=== PATIENT | female | born 1960 | race Caucasian/White ===

== ENCOUNTER → 2016-10-13 | Day surgery (SDC) | payer BC ==
[~2016-10-13] MED LIST: ADVA250A INH; ALPR1TAB3 PO; BLACK COHASH; DETR2TAB PO; IBUP800T23 PO; IOHEXOL 180 MG/ML 20 ML VIAL (for RAD DIAG) EPIDURAL ONE; LIDOCAINE HCL 1% 30 ML VIAL NERV BLOCK ONE; MEPERIDINE HCL 25 MG/ML VIAL IV ONE; POTASSIUM; PREG25 PO; PROPOFOL 200 MG/20 ML AMP IV ONE; ROBA750T PO; TOLT1TAB16 PO; TRIAMCINOLONE ACETONIDE 40 MG/ML VIAL NERV BLOCK ONE; VENTAER INH; VITA100064 PO; ZOLP5TAB3 PO; [UNRECOGNIZED DRUG - REMARK]
--- NOTE | 2016-10-17 13:06 | M6 ---
cc: TEMI MENA M.D. DATE: 10/13/2016 DATE OF : 1960 PROCEDURE Fluoroscopically guided right L3-4 and right L4-5 transforaminal epidural steroid injection. PROCEDURE NOTE History and physical was completed and signed. Consent was signed. Procedure site was marked. Medications were listed and reconciled. Pain score was recorded. Allergies were noted. Timeout was taken. Fluoroscopy time was recorded where applicable. Sedation was administered or directed by Dr. Mena. The patient was given oxygen. The patient was monitored by a registered nurse. Total procedure time was greater than 15 minutes. An IV was started, blood pressure cuff, pulse oximeter and EKG were applied. The patient was placed in the prone position on a Chan table, sedated with small amounts of Versed and propofol titrated to effect. Vital signs were monitored and remained stable throughout the procedure. The patient remained responsive throughout the procedure. The lumbar area was scrubbed with antimicrobial solution, prepped with 10% Betadine solution, and draped with sterile drapes. Fluoroscopy was used in both the AP and lateral projections to clearly visualize the right L3-4 and L4-5 neural foramen. Then separate sterile 22-gauge, 3-1/2 inch Chiba needles were advanced under fluoroscopic guidance into the dorsal-most aspect of each foramen. There was negative aspiration for blood or CSF. There were no reported paresthesias by the patient. There was no washout of 2 mL of Omnipaque. Then after waiting approximately 60 seconds, the patient was slowly given 3 mL of 1% Xylocaine, 3 mL of Omnipaque and 40 mg of Kenalog at each location. W. MD VASU RoblesM/ESPERANZA /10:14 AM /1:02 PM
== END | disposition home or self-care (01) ==
LOC: PHSDC 08:59
PROVIDERS: ATTEND Pain Medicine Interventional Pain Medicine
DX: M54.5 Low back pain (principal); M79.604 Pain in right leg
CPT/HCPCS: 64483; 64484; 99152; J2175; J3301; Q9965

== ENCOUNTER → 2017-05-23 | Day surgery (SDC) | payer BC ==
[~2017-05-23] MED LIST changes: +BLAC540C PO; -BLACK COHASH; +CONJ1TAB PO; -DETR2TAB PO; +DULO1CAP3 PO; +FEXO60TA36 PO; +IBUP1TAB7 PO; -IBUP800T23 PO; -IOHEXOL 180 MG/ML 20 ML VIAL (for RAD DIAG) EPIDURAL ONE; +KRIL500C PO; +LORA0.5T PO; +LUTE40CA2 PO; -MEPERIDINE HCL 25 MG/ML VIAL IV ONE; +POTA-255 PO; -POTASSIUM; -PREG25 PO; +PREV15CA20 PO; -ROBA750T PO; +SODIUM CHLORIDE 0.9% 10 ML VIAL ONE; +SOMA250T PO; -[UNRECOGNIZED DRUG - REMARK]; +methylPREDNISolone ACETATE 40 MG/ML VIAL IM ONE
--- NOTE | 2017-05-23 08:44 | M6 ---
cc: TEMI MENA M.D. DATE: 05/23/2017 DATE OF : 1960 PROCEDURE Injection local anesthetic and steroid right hamstring tendon. PROCEDURE NOTE History and physical was completed and signed. Consent was signed. Procedure site was marked. Medications were listed and reconciled. Pain score was recorded. Allergies were noted. Timeout was taken. Fluoroscopy time was recorded where applicable. Sedation was administered or directed by Dr. Mena. The patient was given oxygen. The patient was monitored by a registered nurse. Total procedure time was greater than 15 minutes. An IV was started, blood pressure cuff, pulse oximeter and EKG were applied. The patient was placed in the prone position on a Chan table, sedated with small amounts of propofol titrated to effect. Vital signs were monitored and remained stable throughout the procedure. The right buttocks area was prepped with alcohol and 10% Betadine solution, draped with sterile drapes. Fluoroscopy was used to visualize the right ischial tuberosity. A 5-inch, 22-gauge spinal needle was advanced down to the posterior border of the ischial tuberosity in the anatomical location of the hamstring tendon and the patient was given 10 mL of 0.5% Xylocaine, 40 mg of Depo-Medrol and 20 mg of Kenalog. Following the procedure the patient was taken to the recovery room with stable vital signs, neurologically intact. She will be evaluated immediately and with follow-up to determine if she has a subjective decrease in her usual pain and a corresponding objective increase in her functional capabilities. WMD REGLA Deras/ESPERANZA /8:28 AM /8:31 AM
== END | disposition home or self-care (01) ==
LOC: PHSDC 07:17
PROVIDERS: ATTEND Pain Medicine Interventional Pain Medicine
DX: M79.604 Pain in right leg (principal); M54.5 Low back pain
CPT/HCPCS: 64450; 99152; J1030; J3301; 64640

== ENCOUNTER 2018-01-03 08:59 | Observation (INO) ==
[2018-01-03 09:41] LABS: Baso % (Auto) 0.3 % (0.0-2.0); Eos # (Auto) 0.2 th/mm3 (0.0-0.4); Eos % (Auto) 2.6 % (0.0-4.0); Hematocrit 33.2 % (35.0-46.0); Hemoglobin 11.4 gm/dL (11.6-15.3); Lymph # (Auto) 1.7 th/mm3 (1.0-4.8); Lymph % (Auto) 25.4 % (9.0-44.0); Mean Corpuscular HGB Conc 34.2 % (32.0-36.0); Mean Corpuscular Hemoglobin 29.5 pg (27.0-34.0); Mean Corpuscular Volume 86.2 fL (80.0-100.0); Mean Platelet Volume 7.4 fL (7.0-11.0); Mono # (Auto) 0.5 th/mm3 (0.0-0.9); Mono % (Auto) 6.9 % (0.0-8.0); Neut # (Auto) 4.3 th/mm3 (1.8-7.7); Neut % (Auto) 64.8 % (16.0-70.0); Platelet Count 268 th/mm3 (150-450); Red Blood Count 3.84 mil/mm3 (4.00-5.30); Red Cell Distribution Width 14.1 % (11.6-17.2); White Blood Count 6.7 th/mm3 (4.0-11.0)
[2018-01-03 09:54] LABS: Activated Partial Thrombo Time 25.5 sec (24.3-30.1); Prothrombin Time 10.2 sec (9.8-11.6)
--- NOTE | 2018-01-03 10:16 | XR ---
EXAM DATE: 01/03/2018 9:51 AM EDT AGE/SEX: 57 years / Female INDICATIONS: Dizziness, palpitations, slurred speech. CLINICAL DATA: This is the patient's initial encounter. Patient reports that signs and symptoms have been present for 1 day and indicates a pain score of 0/10. MEDICAL/SURGICAL HISTORY: None. None. COMPARISON: [facility]PO, CHEST PA & LAT, 09/21/2014. . FINDINGS: A single AP view of the chest demonstrates the lungs to be symmetrically aerated without evidence of mass, infiltrate or effusion. The cardiomediastinal contours are unremarkable. Osseous structures a re intact. CONCLUSION: No acute cardiopulmonary process. Electronically signed by: Gurpreet Underwood MD 01/03/2018 10:15 AM EDT
--- NOTE | 2018-01-03 10:17 | ED ---
HPI General Chief complaint: Neuro Symptoms/Deficit Stated complaint: Hypertension/Slurred Speech Time Seen by Provider: 01/03/18 09:19 History of Present Illness HPI narrative: 57-year-old female history of anxiety and asthma here for evaluation of acute onset of weakness on both arms and legs that started about 2 hours prior to arrival to the ER. Patient says that she woke up this morning around 6:00, was late to get ready for work and was anxious about that, she took a shower and did not have any symptoms but then when she went to work she started having weakness in both arms and legs, gait imbalance, blurred vision, palpitations, speech difficulty. When I asked about the speech difficulty she says "that is not my normal way of talking", and rewards easily understandable and she denies having difficulties finding words or expressing herself. Patient has mild headache that she rates 4 out of 10 that is frontal. She rates the weakness in both arms and legs as 4 out of 10, slow gait but no fall or head trauma or loss of consciousness. When she started having symptoms at work she asked a friend to drive her to the ER. She says she never had these symptoms in the past. 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 Related Data Home Medications Medication Instructions Recorded Confirmed albuterol sulfate [Ventolin HFA] 2 puff INHALATION Q4H PRN 01/03/18 01/03/18 black cohosh 40 mg PO DAILY 01/03/18 01/03/18 carisoprodol [Soma] 350 mg PO QID 01/03/18 01/03/18 coenzyme Q10 [Co Q-10] 200 mg PO DAILY 01/03/18 01/03/18 fluticasone-salmeterol [Advair HFA] 2 puff INHALATION BID 01/03/18 01/03/18 gabapentin 300 mg PO TID 01/03/18 01/03/18 lansoprazole [Prevacid] 15 mg PO DAILY 01/03/18 01/03/18 loratadine [Claritin] 10 mg PO DAILY 01/03/18 01/03/18 lorazepam 1 mg PO BID 01/03/18 01/03/18 mirabegron [Myrbetriq] 50 mg PO DAILY 01/03/18 01/03/18 zolpidem 10 mg PO HS 01/03/18 01/03/18 Previous Rx's Medication Instructions Recorded prednisone See Label Instructions .ROUTE 01/04/18 .COMPLEX #21 each Allergies Allergy/AdvReac Type Severity Reaction Status Date / Time No Known Allergies Allergy Unknown Uncoded 05/23/17 07:36 Review of Systems Except as stated in HPI: all other systems reviewed are negative [facility] Social History Social History Substance History: No History of Abuse Second Hand Smoke Exposure: No Smoking Status: Former smoker How Often Do You Have a Drink Containing Alcohol: Never Recent Travel in [facility] within the Last 8 Weeks: No Recent Out of Country Travel within the Last 8 Weeks: No Immunization History Tetanus Immunization: Unsure Hx Influenza Vaccine This Season: Yes Exam Narrative Exam Narrative: GENERAL: Alert oriented 3 no acute distress. SKIN: Focused skin assessment warm/dry. HEAD: Atraumatic. Normocephalic. EYES: Pupils equal and round. No scleral icterus. No injection or drainage. ENT: No nasal bleeding or discharge. Mucous membranes pink and moist. NECK: Trachea midline. No JVD. CARDIOVASCULAR: Regular rate and rhythm. No murmur appreciated. RESPIRATORY: No accessory muscle use. Clear to auscultation. Breath sounds equal bilaterally. GASTROINTESTINAL: Abdomen soft, non-tender, nondistended. Hepatic and splenic margins not palpable. MUSCULOSKELETAL: No obvious deformities. No clubbing. No cyanosis. No edema. NEUROLOGICAL: Awake and alert. No obvious cranial nerve deficits. Motor grossly within normal limits. Normal speech. PSYCHIATRIC: Appropriate mood and affect; insight and judgment normal. Course Initial Documented Vital Signs Temperature 98.1 F 01/03/18 09:00 Pulse Rate 105 H 01/03/18 09:00 Respiratory Rate 16 01/03/18 09:00 Blood Pressure 132/71 01/03/18 09:00 Pulse Oximetry 96 01/03/18 09:00 Last Documented Vital Signs Temperature 98.2 F 01/04/18 12:00 Pulse Rate 105 H 01/04/18 12:00 Respiratory Rate 18 01/04/18 12:00 Blood Pressure 134/76 01/04/18 12:00 Pulse Oximetry 105 H 01/04/18 12:00 NIH Stroke Scale NIH Stroke Scale Level of Consciousness: 0-Alert Orientation Questions: 0-Answers both correct Responds to Commands: 0-Both tasks correct Gaze Eye Movement: 0-Horizontal movement WNL Visual Smalls: 0-No visual field defect Facial Movement: 0-Normal Motor Functions Arm LEFT: 0-No drift Motor Functions Arm RIGHT: 0-No drift Motor Functions Leg LEFT: 0-No drift Motor Functions Leg RIGHT: 0-No drift Limb Ataxia: 0-No ataxia Sensory Loss: 0-No sensory loss Best Language: 0-Normal Articulation: 1-Mild dysarthia Extinction or Inattention Sensory: 0-Absent Total: 1 Medical Decision Making MDM Narrative Medical decision making narrative: 57-year-old female here for evaluation of weakness in both arms and legs that started about an hour prior to arrival to the ER. She has history of anxiety and appeared anxious during history taking here in the ER, she takes lorazepam 1 mg 3 times a day, she has been stressed out recently for school. Complete neurological examination is unremarkable for any focal deficits although she has slow gait, she also reports slow speech. Labs are within normal limits and head CT is negative. Patient improved here with 2 mg of Ativan. Reevaluation of the patient, she says the weakness in her arms and legs are gone, blurred vision is improved but the speech is still slow. Patient was complaining of headache that is rated 4 out of 10, she says the headache is gone as well. Differential diagnosis include TIA, CVA, anxiety , complicated migraine. Her symptoms were more generalized and physical examination did not reveal any focal deficits so patient was not a candidate for TPA. Patient will be admitted for 23 hour observation. Lab Data Result diagrams: 01/04/18 04:35 01/04/18 04:50 Lab Results 01/03/18 01/03/18 01/03/18 Range/Units 09:30 09:30 09:30 CBC w Diff Auto diff final WBC 6.7 (4.0-11.0) th/mm3 RBC 3.84 L (4.00-5.30) mil/mm3 Hgb 11.4 L (11.6-15.3) gm/dL Hct 33.2 L (35.0-46.0) % MCV 86.2 (80.0-100.0) fL MCH 29.5 (27.0-34.0) pg MCHC 34.2 (32.0-36.0) % RDW 14.1 (11.6-17.2) % Plt Count 268 (150-450) th/mm3 MPV 7.4 (7.0-11.0) fL Neut % (Auto) 64.8 (16.0-70.0) % Lymph % (Auto) 25.4 (9.0-44.0) % [place] % (Auto) 6.9 (0.0-8.0) % Eos % (Auto) 2.6 (0.0-4.0) % Baso % (Auto) 0.3 (0.0-2.0) % Neut # (Auto) 4.3 (1.8-7.7) th/mm3 Lymph # (Auto) 1.7 (1.0-4.8) th/mm3 [place] # (Auto) 0.5 (0.0-0.9) th/mm3 Eos # (Auto) 0.2 (0.0-0.4) th/mm3 Baso # (Auto) 0.0 (0.0-0.2) th/mm3 WBC Differential . Differential Comment . PT 10.2 (9.8-11.6) sec INR 1.0 Ratio APTT 25.5 (24.3-30.1) sec Sodium 137 (136-145) meq/L Potassium 3.6 (3.5-5.1) meq/L Chloride 99 (98-107) meq/L Carbon Dioxide 28.4 (21.0-32.0) meq/L Anion Gap 10 (5-15) meq/L BUN 13 (7-18) mg/dL Creatinine 0.62 (0.50-1.00) mg/dL Estimated GFR Greater than 89 (>89) mL/min Random Glucose 110 H (74-106) mg/dL Hemoglobin A1c (4.3-6.0) % Calcium 8.1 L (8.5-10.1) mg/dL Total Bilirubin 0.2 (0.2-1.0) mg/dL AST 14 L (15-37) U/L ALT 22 (10-53) U/L Alkaline Phosphatase 100 (45-117) U/L Total Creatine Kinase 93 (26-192) U/L Troponin I Less than 0.02 L (0.02-0.05) ng/mL Total Protein 6.6 (6.4-8.2) g/dL Albumin 3.4 (3.4-5.0) g/dL Triglycerides (42-150) mg/dL Cholesterol (120-200) mg/dL LDL Cholesterol, Calc (0-99) mg/dL HDL Cholesterol (40.0-60.0) mg/dL Cholesterol/HDL Ratio Ratio TSH (0.358-3.740) uIU/mL Urine Color (Yellw/Straw) Urine Clarity (Clear) Urine pH (5.0-8.5) Ur Specific [place] (1.002-1.035) Urine Protein (Neg-Trace) mg/dL Urine Glucose (UA) (Negative) mg/dL Urine Ketones (Negative) mg/dL Urine Occult Blood (Negative) Urine Nitrate (Negative) Urine Bilirubin (Negative) Urine Urobilinogen (Less than 2) mg/dL Ur Leukocyte Esterase (Negative) Urine WBC (0-5) /hpf Ur Squamous Epith Cells (0-5) /hpf Micro UA Comment Urine Culture Comments 01/03/18 01/03/18 01/03/18 Range/Units 09:30 09:30 09:30 CBC w Diff WBC (4.0-11.0) th/mm3 RBC (4.00-5.30) mil/mm3 Hgb (11.6-15.3) gm/dL Hct (35.0-46.0) % MCV (80.0-100.0) fL MCH (27.0-34.0) pg MCHC (32.0-36.0) % RDW (11.6-17.2) % Plt Count (150-450) th/mm3 MPV (7.0-11.0) fL Neut % (Auto) (16.0-70.0) % Lymph % (Auto) (9.0-44.0) % [place] % (Auto) (0.0-8.0) % Eos % (Auto) (0.0-4.0) % Baso % (Auto) (0.0-2.0) % Neut # (Auto) (1.8-7.7) th/mm3 Lymph # (Auto) (1.0-4.8) th/mm3 [place] # (Auto) (0.0-0.9) th/mm3 Eos # (Auto) (0.0-0.4) th/mm3 Baso # (Auto) (0.0-0.2) th/mm3 WBC Differential Differential Comment PT (9.8-11.6) sec INR Ratio APTT (24.3-30.1) sec Sodium (136-145) meq/L Potassium (3.5-5.1) meq/L Chloride (98-107) meq/L Carbon Dioxide (21.0-32.0) meq/L Anion Gap (5-15) meq/L BUN (7-18) mg/dL Creatinine (0.50-1.00) mg/dL Estimated GFR (>89) mL/min Random Glucose (74-106) mg/dL Hemoglobin A1c 5.9 (4.3-6.0) % Calcium (8.5-10.1) mg/dL Total Bilirubin (0.2-1.0) mg/dL AST (15-37) U/L ALT (10-53) U/L Alkaline Phosphatase (45-117) U/L Total Creatine Kinase (26-192) U/L Troponin I (0.02-0.05) ng/mL Total Protein (6.4-8.2) g/dL Albumin (3.4-5.0) g/dL Triglycerides 45 (42-150) mg/dL Cholesterol 141 (120-200) mg/dL LDL Cholesterol, Calc 61 (0-99) mg/dL HDL Cholesterol 70.6 H (40.0-60.0) mg/dL Cholesterol/HDL Ratio 1.99 Ratio TSH 0.489 (0.358-3.740) uIU/mL Urine Color (Yellw/Straw) Urine Clarity (Clear) Urine pH (5.0-8.5) Ur Specific [place] (1.002-1.035) Urine Protein (Neg-Trace) mg/dL Urine Glucose (UA) (Negative) mg/dL Urine Ketones (Negative) mg/dL Urine Occult Blood (Negative) Urine Nitrate (Negative) Urine Bilirubin (Negative) Urine Urobilinogen (Less than 2) mg/dL Ur Leukocyte Esterase (Negative) Urine WBC (0-5) /hpf Ur Squamous Epith Cells (0-5) /hpf Micro UA Comment Urine Culture Comments 01/03/18 01/04/18 01/04/18 Range/Units 15:40 04:35 04:50 CBC w Diff Auto diff final WBC 8.1 (4.0-11.0) th/mm3 RBC 4.54 (4.00-5.30) mil/mm3 Hgb 13.3 (11.6-15.3) gm/dL Hct 39.2 (35.0-46.0) % MCV 86.4 (80.0-100.0) fL MCH 29.2 (27.0-34.0) pg MCHC 33.8 (32.0-36.0) % RDW 14.1 (11.6-17.2) % Plt Count 354 D (150-450) th/mm3 MPV 8.2 (7.0-11.0) fL Neut % (Auto) 92.5 H (16.0-70.0) % Lymph % (Auto) 6.7 L (9.0-44.0) % [place] % (Auto) 0.3 (0.0-8.0) % Eos % (Auto) 0.1 (0.0-4.0) % Baso % (Auto) 0.4 (0.0-2.0) % Neut # (Auto) 7.6 (1.8-7.7) th/mm3 Lymph # (Auto) 0.5 L (1.0-4.8) th/mm3 [place] # (Auto) 0.0 (0.0-0.9) th/mm3 Eos # (Auto) 0.0 (0.0-0.4) th/mm3 Baso # (Auto) 0.0 (0.0-0.2) th/mm3 WBC Differential . Differential Comment . PT (9.8-11.6) sec INR Ratio APTT (24.3-30.1) sec Sodium 138 (136-145) meq/L Potassium 4.4 D (3.5-5.1) meq/L Chloride 101 (98-107) meq/L Carbon Dioxide 27.1 (21.0-32.0) meq/L Anion Gap 10 (5-15) meq/L BUN 13 (7-18) mg/dL Creatinine 0.72 (0.50-1.00) mg/dL Estimated GFR 84 L (>89) mL/min Random Glucose 153 H (74-106) mg/dL Hemoglobin A1c (4.3-6.0) % Calcium 9.0 D (8.5-10.1) mg/dL Total Bilirubin (0.2-1.0) mg/dL AST (15-37) U/L ALT (10-53) U/L Alkaline Phosphatase (45-117) U/L Total Creatine Kinase (26-192) U/L Troponin I (0.02-0.05) ng/mL Total Protein (6.4-8.2) g/dL Albumin (3.4-5.0) g/dL Triglycerides (42-150) mg/dL Cholesterol (120-200) mg/dL LDL Cholesterol, Calc (0-99) mg/dL HDL Cholesterol (40.0-60.0) mg/dL Cholesterol/HDL Ratio Ratio TSH (0.358-3.740) uIU/mL Urine Color Yellow (Yellw/Straw) Urine Clarity Clear (Clear) Urine pH 7.0 (5.0-8.5) Ur Specific [place] 1.015 (1.002-1.035) Urine Protein Negative (Neg-Trace) mg/dL Urine Glucose (UA) Negative (Negative) mg/dL Urine Ketones Negative (Negative) mg/dL Urine Occult Blood Negative (Negative) Urine Nitrate Negative (Negative) Urine Bilirubin Negative (Negative) Urine Urobilinogen 0.2 (Less than 2) mg/dL Ur Leukocyte Esterase Small H (Negative) Urine WBC 0-5 (0-5) /hpf Ur Squamous Epith Cells 0-5 (0-5) /hpf Micro UA Comment Culture not ind Urine Culture Comments Culture not ind Imaging Data Radiologist's impression: Chest X-Ray 01/03/18 09:19 CONCLUSION: No acute cardiopulmonary process. Head CT 01/03/18 09:19 CONCLUSION: No acute intracranial abnormalities seen. Carotid Doppler Study 01/04/18 00:00 CONCLUSION: 1. Right Internal Carotid Artery: No significant stenosis; minimal atherosclerotic plaque is visualized. 2. Left Internal Carotid Artery: No significant stenosis; minimal atherosclerotic plaque is visualized. 3. Antegrade flow in both vertebral arteries. Head MRI 01/04/18 00:00 CONCLUSION: MRI of the brain is negative. Patient does have significant optic deviation to the right there are normal- appearing posterior fossa.fossa. Discharge Plan Discharge Disposition Patient Disposition: Discharge Home Discharge Condition Condition: Stable Discharge Order Discharge Orders: Discharge Order (Routine); Ordered 01/04/18 Ordered By: Annetta Justin Physicians Team ED Provider: Lizandro Kaba Primary Care Provider: Nikhil Alas Attending Provider: Annetta Justin Status ED Status: Left Department Discharge Information Discharge Date/Time: 01/03/18 13:20 Discharge Location: [facility] at Home
[2018-01-03 10:24] LABS: Chloride 99 meq/L (98-107); Potassium 3.6 meq/L (3.5-5.1); Sodium 137 meq/L (136-145)
[2018-01-03 10:28] LABS: Anion Gap 10 meq/L (5-15); Calcium 8.1 mg/dL (8.5-10.1); Carbon Dioxide 28.4 meq/L (21.0-32.0)
[2018-01-03 10:29] LABS: Glucose,Random 110 mg/dL (74-106)
[2018-01-03 10:31] LABS: Albumin 3.4 g/dL (3.4-5.0)
[2018-01-03 10:32] LABS: Aspartate Aminotransferase 14 U/L (15-37); Glomerular Filtration Rate Greater Than 89 mL/min (>89)
--- NOTE | 2018-01-03 10:32 | CT ---
EXAM DATE: 01/03/2018 9:58 AM EDT AGE/SEX: 57 years / Female INDICATIONS: Slurred speech, difficulty ambulating, slight left frontal headache. CLINICAL DATA: This is the patient's initial encounter. Patient reports that signs and symptoms have been present for 1 day and indicates a pain score of 2/10. MEDICAL/SURGICAL HISTORY: Asthma. None. RADIATION DOSE: 58.41 CTDI (mGy) COMPARISON: No prior exams available for comparison. TECHNIQUE: CT of the head without contrast. Using automated exposure control and adjustment of the mA and/or kV according to patient size, radiation dose was kept as low as reasonably achievable to ob tain optimal diagnostic quality images. DICOM format image data is available electronically for revi ew and comparison. FINDINGS: Cerebrum: The ventricles are normal for age. No evidence of midline shift, mass lesion, hemorrhage or acute infarction. No extraaxial fluid collections are seen. Posterior Fossa: The cerebellum and brainstem are intact. The 4th ventricle is midline. The cerebe llopontine angle is unremarkable. Extracranial: The visualized portion of the orbits is intact. Skull: The calvaria is intact. No evidence of skull fracture. CONCLUSION: No acute intracranial abnormalities seen. Electronically signed by: Gurpreet Underwood MD 01/03/2018 10:30 AM EDT
[2018-01-03 10:34] LABS: Blood Urea Nitrogen 13 mg/dL (7-18); Total Protein 6.6 g/dL (6.4-8.2)
[2018-01-03 10:35] LABS: Alanine Aminotransferase 22 U/L (10-53); Alkaline Phosphatase 100 U/L (45-117)
[2018-01-03 10:36] LABS: Creatine Kinase 93 U/L (26-192)
[2018-01-03] MEDS ORDERED: Temazepam 15 MG Capsule PO PRN (13:02)
[2018-01-03] MEDS ORDERED: Bisacodyl 10 MG Supp RECTAL PRN (13:02)
--- NOTE | 2018-01-03 13:18 | ECG ---
Date Performed: 01/03/2018 Time Performed: 09:11:18 PTAGE: 57 years EKG: SINUS TACHYCARDIA NONSPECIFIC T-WAVE ABNORMALITY ABNORMAL RHYTHM ECG Since the PREVIOUS TRACING , no significant change noted PREVIOUS TRACIN09/21/2014 01.03 DOCTOR: Dylan Heath Interpretating Date/Time 01/03/2018 13:15:17
--- NOTE | 2018-01-03 14:16 | P.HP ---
History of Present Illness Primary Care Physician: Nikhil Alas MD History of Present Illness: This is a pleasant 57-year-old female patient with a known medical history of anxiety and asthma who presented to the ED with complaints of bilateral upper and lower extremity weakness. 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 She also admits to imbalance with her gait as well as blurry vision and blurring of speech. Patient states that she was able to understand and remembers occurrences prior to presentation to the ED. She does also admit to an associated frontal headache. She denies any falls at home. She denies any dizziness or lightheadedness. She denies ever having this type of sensation in the past. Patient does admit to history of asthma, states she forgot her inhaler yesterday and does complain of some shortness of breath. She has not had an acute asthma attack for over 6 years now. Patient does state that she checked her blood pressure yesterday it was reading 193/107. She spoke to her primary care doctor about the elevated reading, she saw him in his office and the reading was within normal limits therefore she was not placed on any blood pressure medications. She denies any current tobacco abuse. Denies any significant family medical history. Denies any recent antibiotic use or steroids. Has been feeling her normal self prior to said symptoms. CTA negative upon presentation. Chest x-ray also negative. Patient is on 2 L nasal cannula with diminished breath sounds in the bases. Suspect mild asthma exacerbation as well. - Diagnosis (1) Transient ischemic attack (2) Asthma exacerbation, mild Review of Systems All other systems reviewed negative except as stated in HPI PMFSH - History History Provided By: Patient - Medical History Medical History: Medical History (Last Reviewed 01/03/18 @ 13:02 by Daisy Gallardo) Sciatic leg pain - Surgical History Surgical History: Surgical History (Last Updated 01/03/18 @ 16:59 by Candis Jerry) H/O breast augmentation H/O tubal ligation S/P lumbar fusion - Tobacco History Second Hand Smoke Exposure: No Tobacco Use In Past 30 Days: No Smoking Status: Former smoker - Alcohol History How Often Do You Have a Drink Containing Alcohol: Never - Travel History Recent Travel in the [place] Within the Last 8 Weeks: No Recent Travel Out of the Country Within the Last 8 Weeks: No - Immunization History Tetanus Immunization: Unsure Hx Influenza Vaccine This Season: Yes Medications and Allergies Active Medications: Active Medications Acetaminophen (Tylenol) 650 mg PO Q4H PRN PRN Reason: Temp > 100.4 Al Hydroxide/Mg Hydroxide (Milk Of Magnesia Liq) 30 ml PO Q12H PRN PRN Reason: Mild Constipation Bisacodyl (Dulcolax Supp) 10 mg RECTAL DAILY PRN PRN Reason: SEVERE CONSITIPATION Lactulose (Lactulose Liq) 30 ml PO DAILY PRN PRN Reason: SEVERE CONSITIPATION Ondansetron HCl (Zofran Inj) 4 mg IV.PUSH Q6H PRN PRN Reason: NAUSEA OR VOMITING Senna/Docusate Sodium (Jennyfer-Colace) 1 tab PO BID LIS Sennosides (Senokot) 17.2 mg PO Q12H PRN PRN Reason: Moderate Constipation Sodium Chloride (Ns Flush) 2 ml IV.FLUSH BID LIS Sodium Chloride (Ns Flush) 2 ml IV.FLUSH PRN PRN PRN Reason: FLUSH AFTER USING IV ACCESS Temazepam (Restoril) 15 mg PO HS PRN PRN Reason: INSOMNIA Allergies Allergy/AdvReac Type Severity Reaction Status Date / Time No Known Allergies Allergy Unknown Uncoded 05/23/17 07:36 Home Medications Medication Instructions Recorded Confirmed Type albuterol sulfate [Ventolin HFA] 2 puff INHALATION Q4H PRN 01/03/18 01/03/18 History black cohosh 40 mg PO DAILY 01/03/18 01/03/18 History carisoprodol [Soma] 350 mg PO QID 01/03/18 01/03/18 History coenzyme Q10 [Co Q-10] 200 mg PO DAILY 01/03/18 01/03/18 History fluticasone-salmeterol [Advair HFA] 2 puff INHALATION BID 01/03/18 01/03/18 History gabapentin 300 mg PO TID 01/03/18 01/03/18 History lansoprazole [Prevacid] 15 mg PO DAILY 01/03/18 01/03/18 History loratadine [Claritin] 10 mg PO DAILY 01/03/18 01/03/18 History lorazepam 1 mg PO BID 01/03/18 01/03/18 History mirabegron [Myrbetriq] 50 mg PO DAILY 01/03/18 01/03/18 History zolpidem 10 mg PO HS 01/03/18 01/03/18 History Exam Vital signs: Vital Signs 01/03/18 09:00 01/03/18 09:45 01/03/18 10:55 Temperature 98.1 F Pulse Rate 105 H 98 H Respiratory Rate 16 16 Blood Pressure 132/71 128/77 Pulse Oximetry 96 98 88 L 01/03/18 11:04 01/03/18 11:06 01/03/18 13:02 Temperature Pulse Rate 93 H 90 Respiratory Rate 14 Blood Pressure 124/76 128/79 Pulse Oximetry 98 98 Intake & Output 01/02/18 01/03/18 01/03/18 18:59 06:59 18:59 Weight 77 kg Narrative: GENERAL: Well-developed, well-nourished patient in [place]. On supplemental O2. SKIN: Warm and dry. No rash. HEAD: Normocephalic. Atraumatic. EYES: Pupils equal and round. No scleral icterus. No injection or drainage. ENT: No nasal bleeding or discharge. Mucous membranes pink and moist. NECK: Supple. Trachea midline. CARDIOVASCULAR: Regular rate and rhythm. S1, S2 noted. No murmur appreciated. RESPIRATORY: No accessory muscle use. Clear to auscultation. Breath sounds equal bilaterally. GASTROINTESTINAL: Abdomen soft, non-tender, nondistended. Normoactive bowel sounds x4. MUSCULOSKELETAL: No obvious deformities. Extremities without clubbing, cyanosis , or edema. NEUROLOGICAL: Awake and alert. No obvious cranial nerve deficits. Motor grossly within normal limits. 5/5 muscle strength in bilateral upper and lower extremities. Normal speech. No weakness. PSYCHIATRIC: Appropriate mood and affect; insight and judgment normal. - Constitutional no acute distress - Routine HEENT Exam Head: Present: normocephalic Eye: Present: EOMI, PERRL ENT: Present: mucous membranes moist - Routine Neck Exam Present: supple Results - Labs CBC & Chem 7: 01/03/18 09:30 01/03/18 09:30 Labs: Laboratory Results - last 24 hr 01/03/18 01/03/18 01/03/18 09:30 09:30 09:30 CBC w Diff Auto diff final WBC 6.7 RBC 3.84 L Hgb 11.4 L Hct 33.2 L MCV 86.2 MCH 29.5 MCHC 34.2 RDW 14.1 Plt Count 268 MPV 7.4 Neut % (Auto) 64.8 Lymph % (Auto) 25.4 [place] % (Auto) 6.9 Eos % (Auto) 2.6 Baso % (Auto) 0.3 Neut # (Auto) 4.3 Lymph # (Auto) 1.7 [place] # (Auto) 0.5 Eos # (Auto) 0.2 Baso # (Auto) 0.0 WBC Differential . Differential Comment . PT 10.2 INR 1.0 APTT 25.5 Sodium 137 Potassium 3.6 Chloride 99 Carbon Dioxide 28.4 Anion Gap 10 BUN 13 Creatinine 0.62 Estimated GFR Greater than 89 Random Glucose 110 H Calcium 8.1 L Total Bilirubin 0.2 AST 14 L ALT 22 Alkaline Phosphatase 100 Total Creatine Kinase 93 Troponin I Less than 0.02 L Total Protein 6.6 Albumin 3.4 - Imaging Impressions Chest X-Ray 01/03/18 09:19 CONCLUSION: No acute cardiopulmonary process. Head CT 01/03/18 09:19 CONCLUSION: No acute intracranial abnormalities seen. Caprini VTE Risk Assessment Caprini VTE Risk Assessment: No/Low Risk (score <= 1) Caprini Risk Assessment Model: Point Value = 1 Point Value = 2 Point Value = 3 Point Value = 5 Age 41-60 Minor surgery BMI > 25 kg/m2 Swollen legs Varicose veins or History of unexplained or recurrent spontaneous Oral contraceptives or hormone replacement Sepsis (< 1 month) Serious lung disease, including pneumonia (< 1 month) Abnormal pulmonary function Acute myocardial infarction Congestive heart failure (< 1 month) History of inflammatory bowel disease Medical patient at bed rest Age 61-74 Arthroscopic surgery Major open surgery (> 45 min) Laparoscopic surgery (> 45 min) Malignancy Confined to bed (> 72 hours) Immobilizing plaster cast Central venous access Age >= 75 History of VTE Family history of VTE Factor V Leiden Prothrombin [id number] Lupus anticoagulant Anticardiolipin antibodies Elevated serum homocysteine Heparin-induced thrombocytopenia Other congenital or acquired thrombophilia Stroke (< 1 month) Elective arthroplasty Hip, pelvis, or leg fracture Acute spinal cord injury (< 1 month) Prophylaxis Regimen: Total Risk Factor Score Risk Level Prophylaxis Regimen 0-1 Low Early ambulation 2 Moderate Order ONE of the following: *Sequential Compression Device (SCD) *Heparin 5000 units SQ BID 3-4 Higher Order ONE of the following medications: *Heparin 5000 units SQ TID *Enoxaparin/Lovenox 40 mg SQ daily (WT < 150 kg, CrCl > 30 mL/min) *Enoxaparin/Lovenox 30 mg SQ daily (WT < 150 kg, CrCl > 10-29 mL/min) *Enoxaparin/Lovenox 30 mg SQ BID (WT < 150 kg, CrCl > 30 mL/min) AND/OR *Sequential Compression Device (SCD) 5 or more Highest Order ONE of the following medications: *Heparin 5000 units SQ TID (Preferred with Epidurals) *Enoxaparin/Lovenox 40 mg SQ daily (WT < 150 kg, CrCl > 30 mL/min) *Enoxaparin/Lovenox 30 mg SQ daily (WT < 150 kg, CrCl > 10-29 mL/min) *Enoxaparin/Lovenox 30 mg SQ BID (WT < 150 kg, CrCl > 30 mL/min) AND *Sequential Compression Device (SCD) Assessment and Plan - Assessment (1) Transient ischemic attack Code(s): G45.9 - Transient cerebral ischemic attack, unspecified Status: Acute Plan: Patient admitted with bilateral upper and lower extremity weakness, slurred speech and double vision. She also admits to unsteadiness on her feet. Head CT on presentation negative. Will obtain MRI. Follow. Chest x-ray negative on presentation. Physical therapy evaluation ordered, input and recommendations pending. Echocardiogram ordered. Continue cardiac telemetry, monitor for any arrhythmias. Added hemoglobin A1c as well as TSH and lipid panel to labs. Will follow. Bedside nursing swallow eval normal, will allow patient to eat. Monitor for any dysphasia. We will check orthostatics for any possibility of orthostatic hypotension. We will also check a carotid ultrasound. Supportive care. Close neuro checks. We will hold off on neuro consult until workup obtained. (2) Asthma exacerbation, mild Code(s): J45.901 - Unspecified asthma with (acute) exacerbation Status: Acute Plan: Patient has a history of asthma. Has not had an exacerbation for 6 years now. Denies any recent antibiotic use or steroids. Patient presents with shortness of breath and hypoxia, need for supplemental O2. Currently requiring 2 L nasal cannula. Chest x-ray negative. Diminished breath sounds on exam. Will add low-dose IV steroids. We will continue to monitor clinically. RT consulted, wean O2 as tolerated. Encourage use of incentive spirometer.
[2018-01-03 15:56] LABS: Bilirubin,Urine Negative (Negative); Clarity,Urine Clear (Clear); Color,Urine Yellow (Yellw/Straw); Glucose,Urine (UA) Negative (Negative); Leukocyte Esterase,Urine Small (Negative); Nitrite,Urine Negative (Negative); Specific Gravity,Urine 1.015 (1.002-1.035); Urobilinogen,Urine 0.2 mg/dL (Less than 2)
[2018-01-03 16:02] LABS: Squamous Epithelial Cell,Urine 0-5 /hpf (0-5); WBC,Urine 0-5 /hpf (0-5)
[2018-01-03] MEDS: Acetaminophen 325 MG Tablet PO PRN ×2 (16:04→21:15)
[2018-01-03] MEDS: Gabapentin 300 MG Capsule PO SCH (17:39)
[2018-01-03] MEDS: MethylPREDNISolone Sod Succinate Inj 40 MG/ML Vial IV.PUSH SCH (17:40)
[2018-01-03] MEDS ORDERED: FLUTICASONE SALMETEROL INH SCH (21:00)
[2018-01-03] MEDS: Senna/Docusate Sodium 8.6/50 MG Tablet PO SCH (21:15)
[2018-01-03] MEDS ORDERED: Ketorolac Inj 30 MG/ML (IVP) Vial IV.PUSH ONE (21:25)
[2018-01-04] MEDS: MethylPREDNISolone Sod Succinate Inj 40 MG/ML Vial IV.PUSH SCH ×2 (01:26→06:28)
[2018-01-04 03:10] LABS: Chol/HDL Ratio 1.99 Ratio; HDL Cholesterol 70.6 mg/dL (40.0-60.0)
[2018-01-04 06:20] LABS: Baso % (Auto) 0.4 % (0.0-2.0); Eos % (Auto) 0.1 % (0.0-4.0); Hematocrit 39.2 % (35.0-46.0); Hemoglobin 13.3 gm/dL (11.6-15.3); Lymph # (Auto) 0.5 th/mm3 (1.0-4.8); Lymph % (Auto) 6.7 % (9.0-44.0); Mean Corpuscular HGB Conc 33.8 % (32.0-36.0); Mean Corpuscular Hemoglobin 29.2 pg (27.0-34.0); Mean Corpuscular Volume 86.4 fL (80.0-100.0); Mean Platelet Volume 8.2 fL (7.0-11.0); Mono % (Auto) 0.3 % (0.0-8.0); Neut # (Auto) 7.6 th/mm3 (1.8-7.7); Neut % (Auto) 92.5 % (16.0-70.0); Platelet Count 354 th/mm3 (150-450); Red Blood Count 4.54 mil/mm3 (4.00-5.30); Red Cell Distribution Width 14.1 % (11.6-17.2); White Blood Count 8.1 th/mm3 (4.0-11.0)
[2018-01-04] MEDS: Acetaminophen 325 MG Tablet PO PRN (06:28)
[2018-01-04 06:48] LABS: Carbon Dioxide 27.1 meq/L (21.0-32.0); Potassium 4.4 meq/L (3.5-5.1)
--- NOTE | 2018-01-04 08:53 | US ---
EXAM DATE: 01/04/2018 8:47 AM EDT AGE/SEX: 57 years / Female INDICATIONS: Cerebral vascular accident. CLINICAL DATA: This is the patient's initial encounter. Patient reports that signs and symptoms have been present for 1 day and indicates a pain score of 0/10. MEDICAL/SURGICAL HISTORY: . . COMPARISON: No prior exams available for comparison. VELOCITY PARAMETERS: ICA/CCA Ratio: Right 0.6 , Left 1.0 ICA: Right 58 cm/sec, Left 86 cm/sec CCA: Right 103 cm/sec, Left 90 cm/sec ECA: Right 112 cm/sec, Left 92 cm/sec Vertebral: Right 63 cm/sec antegrade, Left 83 cm/sec antegrade FINDINGS: Right Carotid: Minimal plaque is visualized.The waveforms are within normal limits. Left Carotid: Minimal plaque is visualized. The waveforms are within normal limits. Other: None. CONCLUSION: 1. Right Internal Carotid Artery: No significant stenosis; minimal atherosclerotic plaque is visuali zed. 2. Left Internal Carotid Artery: No significant stenosis; minimal atherosclerotic plaque is visualiz ed. 3. Antegrade flow in both vertebral arteries. Electronically signed by: Richard Wells MD 01/04/2018 8:51 AM EDT
[2018-01-04] MEDS ORDERED: Non-Formulary Drug (Coenzyme Q10 [Co Q-10] 200 MG) PO SCH (09:00)
[2018-01-04] MEDS ORDERED: Pantoprazole Sodium 20 MG DR Tablet PO SCH (09:00)
[2018-01-04] MEDS ORDERED: Loratadine 10 MG Tablet PO SCH (09:00)
[2018-01-04] MEDS ORDERED: Carisoprodol 350 MG Tablet PO ONE (10:00)
[2018-01-04] MEDS: Gabapentin 300 MG Capsule PO SCH (10:06)
[2018-01-04] MEDS: Senna/Docusate Sodium 8.6/50 MG Tablet PO SCH (10:06)
--- NOTE | 2018-01-04 10:22 | P.PNIM ---
Subjective Interval history: Follow-up TIA. Patient seen and examined, lying in bed all symptoms resolved. In no apparent distress. She does admit to some chronic pain, will restart home medications. Awaiting MRI today. All workup for stroke has been negative so far. Labs are stable today. Physical Exam Vital signs: Vital Signs 01/03/18 10:55 01/03/18 11:04 01/03/18 11:06 Temperature Pulse Rate 93 H Respiratory Rate Blood Pressure 124/76 Pulse Oximetry 88 L 98 98 01/03/18 13:02 01/03/18 15:20 01/03/18 17:32 Temperature 98.7 F Pulse Rate 90 92 H Respiratory Rate 14 18 Blood Pressure 128/79 123/70 Pulse Oximetry 98 96 01/03/18 17:41 01/03/18 17:42 01/03/18 19:55 Temperature Pulse Rate Respiratory Rate Blood Pressure 138/74 145/81 H Pulse Oximetry 98 01/03/18 20:00 01/04/18 00:00 01/04/18 05:35 Temperature 99.2 F 97.8 F 98.3 F Pulse Rate 91 H 96 H 90 Respiratory Rate 20 19 20 Blood Pressure 124/67 147/79 H 141/87 H Pulse Oximetry 96 95 94 L 01/04/18 08:00 Temperature 96.8 F L Pulse Rate 93 H Respiratory Rate 18 Blood Pressure 171/93 H Pulse Oximetry 98 Intake & Output 01/03/18 01/04/18 01/04/18 18:59 06:59 18:59 Weight 77 kg Other: Date of Last Bowel Movement 01/02/18 01/02/18 Weight On Admission 76.9 kg Narrative: GENERAL: Well-developed, well-nourished patient in [facility]. SKIN: Warm and dry. No rash. HEAD: Normocephalic. Atraumatic. EYES: Pupils equal and round. No scleral icterus. No injection or drainage. ENT: No nasal bleeding or discharge. Mucous membranes pink and moist. NECK: Supple. Trachea midline. CARDIOVASCULAR: Regular rate and rhythm. S1, S2 noted. No murmur appreciated. RESPIRATORY: No accessory muscle use. Clear to auscultation. Breath sounds equal bilaterally. GASTROINTESTINAL: Abdomen soft, non-tender, nondistended. Normoactive bowel sounds x4. MUSCULOSKELETAL: No obvious deformities. Extremities without clubbing, cyanosis , or edema. NEUROLOGICAL: Awake and alert. No obvious cranial nerve deficits. Motor grossly within normal limits. 5/5 muscle strength in bilateral upper and lower extremities. Normal speech. PSYCHIATRIC: Appropriate mood and affect; insight and judgment normal. - Constitutional no acute distress - Routine HEENT Exam Head: Present: normocephalic Eye: Present: EOMI, PERRL ENT: Present: mucous membranes moist - Routine Neck Exam Present: supple Results - Labs CBC & Chem 7: 01/04/18 04:35 01/04/18 04:50 Laboratory Results - last 24 hr 01/03/18 01/03/18 01/03/18 09:30 09:30 09:30 CBC w Diff WBC RBC Hgb Hct MCV MCH MCHC RDW Plt Count MPV Neut % (Auto) Lymph % (Auto) [place] % (Auto) Eos % (Auto) Baso % (Auto) Neut # (Auto) Lymph # (Auto) [place] # (Auto) Eos # (Auto) Baso # (Auto) WBC Differential Differential Comment Sodium 137 Potassium 3.6 Chloride 99 Carbon Dioxide 28.4 Anion Gap 10 BUN 13 Creatinine 0.62 Estimated GFR Greater than 89 Random Glucose 110 H Calcium 8.1 L Total Bilirubin 0.2 AST 14 L ALT 22 Alkaline Phosphatase 100 Total Creatine Kinase 93 Troponin I Less than 0.02 L Total Protein 6.6 Albumin 3.4 Triglycerides 45 Cholesterol 141 LDL Cholesterol, Calc 61 HDL Cholesterol 70.6 H Cholesterol/HDL Ratio 1.99 TSH 0.489 Urine Color Urine Clarity Urine pH Ur Specific [place] Urine Protein Urine Glucose (UA) Urine Ketones Urine Occult Blood Urine Nitrate Urine Bilirubin Urine Urobilinogen Ur Leukocyte Esterase Urine WBC Ur Squamous Epith Cells Micro UA Comment Urine Culture Comments 01/03/18 01/04/18 01/04/18 15:40 04:35 04:50 CBC w Diff Auto diff final WBC 8.1 RBC 4.54 Hgb 13.3 Hct 39.2 MCV 86.4 MCH 29.2 MCHC 33.8 RDW 14.1 Plt Count 354 D MPV 8.2 Neut % (Auto) 92.5 H Lymph % (Auto) 6.7 L [place] % (Auto) 0.3 Eos % (Auto) 0.1 Baso % (Auto) 0.4 Neut # (Auto) 7.6 Lymph # (Auto) 0.5 L [place] # (Auto) 0.0 Eos # (Auto) 0.0 Baso # (Auto) 0.0 WBC Differential . Differential Comment . Sodium 138 Potassium 4.4 D Chloride 101 Carbon Dioxide 27.1 Anion Gap 10 BUN 13 Creatinine 0.72 Estimated GFR 84 L Random Glucose 153 H Calcium 9.0 D Total Bilirubin AST ALT Alkaline Phosphatase Total Creatine Kinase Troponin I Total Protein Albumin Triglycerides Cholesterol LDL Cholesterol, Calc HDL Cholesterol Cholesterol/HDL Ratio TSH Urine Color Yellow Urine Clarity Clear Urine pH 7.0 Ur Specific [place] 1.015 Urine Protein Negative Urine Glucose (UA) Negative Urine Ketones Negative Urine Occult Blood Negative Urine Nitrate Negative Urine Bilirubin Negative Urine Urobilinogen 0.2 Ur Leukocyte Esterase Small H Urine WBC 0-5 Ur Squamous Epith Cells 0-5 Micro UA Comment Culture not ind Urine Culture Comments Culture not ind - Imaging Impressions Head CT 01/03/18 09:19 CONCLUSION: No acute intracranial abnormalities seen. Carotid Doppler Study 01/04/18 00:00 CONCLUSION: 1. Right Internal Carotid Artery: No significant stenosis; minimal atherosclerotic plaque is visualized. 2. Left Internal Carotid Artery: No significant stenosis; minimal atherosclerotic plaque is visualized. 3. Antegrade flow in both vertebral arteries. Assessment and Plan - Assessment (1) Transient ischemic attack Code(s): G45.9 - Transient cerebral ischemic attack, unspecified Status: Acute Plan: Patient admitted with bilateral upper and lower extremity weakness, slurred speech and double vision. She also admits to unsteadiness on her feet. Head CT on presentation negative. Awaiting MRI today. Chest x-ray negative on presentation. Physical therapy evaluation today, no further recommendations. Echocardiogram ordered. Continue cardiac telemetry, monitor for any arrhythmias. Added hemoglobin A1c.TSH and lipid panel normal. Bedside nursing swallow eval normal, will allow patient to eat. No difficulty swallowing. Orthostatics negative. Carotid ultrasound negative. Supportive care. (2) Asthma exacerbation, mild Code(s): J45.901 - Unspecified asthma with (acute) exacerbation Status: Acute Plan: Patient has a history of asthma. Has not had an exacerbation for 6 years now. Denies any recent antibiotic use or steroids. Patient presents with shortness of breath and hypoxia, need for supplemental O2. Off O2 overnight. On RA. Chest x-ray negative. Encourage use of incentive spirometer. - Plan Discharge Planning: DC home today if MRI negative.
[2018-01-04] MEDS ORDERED: LORazepam 1 MG Tablet PO SCH (10:30)
[2018-01-04] MEDS ORDERED: Tolterodine Tartrate LA 4 MG Capsule PO SCH (11:00)
--- NOTE | 2018-01-04 12:20 | ECHRPT ---
Indication: CVA/TIA CONCLUSIONS Normal left ventricular size. Mild concentric left ventricular hypertrophy. Normal left ventricular systolic function with an ejection fraction of 60-65%. A prominent epicardial fat pad is present. BP: / HR: Rhythm: Sinus MEASUREMENTS (Male / Female) Normal Values Technical Quality:Technically difficult study 2D ECHO LV Diastolic Diameter PLAX 4.6 cm 4.2 - 5.9 / 3.9 - 5.3 cm LV Systolic Diameter PLAX 3.2 cm IVS Diastolic Thickness 1.1 cm 0.6 - 1.0 / 0.6 - 0.9 cm LVPW Diastolic Thickness 1.1 cm 0.6 - 1.0 / 0.6 - 0.9 cm LV Relative Wall Thickness 0.5 RV Internal Dim ED PLAX 2.1 cm LVOT Diameter 2.1 cm Aortic Root Diameter 3.0 cm LA Systolic Diameter LX 2.3 cm 3.0 - 4.0 / 2.7 - 3.8 cm M-MODE AV Cusp Separation MM 1.8 cm DOPPLER AV Peak Velocity 110.0 cm/s AV Peak Gradient 4.8 mmHg AV Mean Gradient 3.0 mmHg AV Velocity Time Integral 21.1 cm LVOT Peak Velocity 89.5 cm/s LVOT Peak Gradient 3.2 mmHg LVOT Velocity Time Integral 16.2 cm AV Area Cont Eq vti 2.7 cm AV Area Cont Eq pk 2.8 cm Mitral E Point Velocity 58.7 cm/s Mitral A Point Velocity 82.4 cm/s Mitral E to A Ratio 0.7 LV E' Lateral Velocity 5.6 cm/s Mitral E to LV E' Lateral Ratio 10.6 LV E' Septal Velocity 5.1 cm/s Mitral E to LV E' Septal Ratio 11.6 PV Peak Velocity 66.9 cm/s PV Peak Gradient 1.8 mmHg FINDINGS LEFT VENTRICLE Normal left ventricular size. Mild concentric left ventricular hypertrophy. The left ventricular systolic function is normal with an estimated ejection fraction in the range of 60-65%. RIGHT VENTRICLE Normal right ventricular size and systolic function. LEFT ATRIUM The left atrial size is normal. RIGHT ATRIUM The right atrial size is normal. ATRIAL SEPTUM No atrial level shunt is demonstrated by color flow Doppler interrogation. AORTA The aortic root and proximal ascending aorta are normal in size on limited imaging. MITRAL VALVE Structurally normal mitral valve. No mitral valve stenosis or regurgitation. AORTIC VALVE No aortic valve stenosis or regurgitation. TRICUSPID VALVE Structurally normal tricuspid valve. No tricuspid valve stenosis or regurgitation. PULMONARY VALVE No pulmonary valve regurgitation or stenosis. VESSELS The inferior vena cava is normal in size. PERICARDIUM No pericardial effusion. A prominent epicardial fat pad is present. Jordin Johnson MD (Electronically Signed) Final Date:04 January 2018 12:18
[2018-01-04] MEDS ORDERED: Carisoprodol 350 MG Tablet PO SCH (13:00)
--- NOTE | 2018-01-04 13:25 | MR ---
EXAM DATE: 01/04/2018 1:11 PM EDT AGE/SEX: 57 years / Female INDICATIONS: Unsteady gait. Diplopia. CLINICAL DATA: This is the patient's initial encounter. Patient reports that signs and symptoms have been present for 1 day and indicates a pain score of 0/10. MEDICAL/SURGICAL HISTORY: None. . Breast augmentation. Lumbar surgery. COMPARISON: No prior exams available for comparison. TECHNIQUE: Multiplanar, multisequence examination of the brain was performed without contrast. FINDINGS: Ventricles are normal size. There is no significant atrophy. There is no restricted diffusion. There is no parenchymal hemorrhage. There are no extra-axial fluid collections appreciated. Midline structu res are intact. In the posterior fossa the 7th and 8th cranial nerves are well-visualized. There is no abnormality in the posterior fossa Portion of the orbits and perineal sinuses visualized are unremarkable and the patient's eyes are dev iated to the right. CONCLUSION: MRI of the brain is negative. Patient does have significant optic deviation to the right there are normal-appearing posterior fossa .fossa. Electronically signed by: Phoenix Preston MD 01/04/2018 1:24 PM EDT
[2018-01-04 17:23] LABS: Hemoglobin A1c 5.9 % (4.3-6.0)
[2018-01-04] MEDS ORDERED: MethylPREDNISolone Sod Succinate Inj 40 MG/ML Vial IV.PUSH SCH (21:00)
== END 2018-01-04 14:37 | disposition home or self-care (01) ==
LOC: PH3 08:59 → PHED 08:59 → PHEDA 08:59 → PH3 13:20
PROVIDERS: ADMIT Hospitalist; ATTEND Hospitalist
DX: F41.9 Anxiety disorder, unspecified; G45.9 Transient cerebral ischemic attack, unspecified; Z98.1 Arthrodesis status; J45.901 Unspecified asthma with (acute) exacerbation; R09.02 Hypoxemia; G89.29 Other chronic pain; I10 Essential (primary) hypertension; Z87.891 Personal history of nicotine dependence